=== PATIENT | male | born 1990 ===

== ENCOUNTER 2021-04-08 16:06 | Outpatient (CLI) | payer OTHER ==
--- NOTE | 2021-04-08 16:58 | SLEEP CARE CONSULTATION ---
Information from patient questionnaire entered by Levi Ogden MA. I have reviewed and concur with the information entered by Levi Ogden MA. This document represents the service I personally performed and the decisions made by , Carlie Sterling ARNP. History of Present Illness Service Date and Time: 04/08/2021 1606 Reason for Visit: New patient Accompanied by: Spouse Chief Complaint: reports: Unrefreshed sleep, Snoring, Excessive daytime sleepiness, Observed pauses in breathing, Fatigue, Other Date of Onset: 9 YEARS Usual bedtime: WEEK 2199 WEEKEND 1200 Time it takes to fall asleep: 15 minutes Snores at night: Yes Observed to quit breathing while asleep: Yes Sleeps alone due to snoring: No Number of times waking at night: 1 Reasons for waking at night: reports: Choking, Gasping for air, Other ( TELLS ME TO ROLL OVER) Toss, Turn, or Twitch while sleeping: Yes Recalls having dreams: No Usually gets out of bed at: 6627-1508 WEEK WEEKENDS 1100 AM Feels refreshed in the morning: No Morning headache: Yes (once a week, last all day with meds) Sleepy or fatigued during the day: Yes Ever fallen asleep while driving: No Takes day naps: Yes (every other day, 2 hours long) Dreams during day naps: No Prior sleep studies: No Additional HPI information: I had the pleasure of seeing ELY CRAWFORD today regarding the possibility of him having a sleep disorder. His current complaints are excessive daytime sleepiness, fatigue, observed pauses in breathing, snoring and unrefreshed sleep. He states he does not feel rested in the morning and is tired during the day. He is accompanied by his who tells me that he will sit up gasping/choking after he has fallen asleep then go back to sleep and not remember the incident. He only wakes up at night when his wakes him to get him to turn over or if he has stopped breathing. He states he never remembers his dreams. He does take naps every other day for about 1-2 hours. He has a hard time remembering things his and him talk about, especially if it is near bedtime. He has hypertension that is treated. 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 Patient is Unknown and lives in . Have you smoked in the past 12 months: No (chews tobacco) Alcohol use: Yes Alcohol amount and frequency: 1 X MONTHLY Caffeine use: Yes Caffeine amount and frequency: 2 X DAILY Family History Family history of sleep disordered breathing: No (adopted) Allergies and Home Medications Known drug allergies: No Drug allergies reviewed: Yes Home medication list reviewed: Yes Allergy and home medication list: AMLODIPINE 10 MG HYDROCHLOROTHIAZIDE 12.5 MG - 100 MG Review of Systems Weight gain over past 5 years: 40 Cardiovascular: reports: high blood pressure Neurological: reports: headaches, head trauma (concussion) Psychiatric: reports: anxiety, depression Ear/Nose/Throat: reports: wisdom teeth removed. denies: injury to nose, tonsillectomy Musculoskeletal: reports: muscle pain or cramping Immunologic: reports: allergies to food or environment (lavender) Physical Exam Vital signs obtained and entered by: SARAH WRAY Blood Pressure: 123/76 (PULSE 86, RIGHT, RESP 16) Cuff size: regular Heart Rate: 92 O2 Saturation: 98 (N95) Height: 5 ft 10 in Weight: 244 lb (UNIFORM AND CLOTHES) Body Mass Index: 34.9 BMI Classification: Obese Neck circumference: 18.5 (inches) Mouth and throat: narrow oropharynx Soft palate: long Hard palate: normal Uvula: normal, long Uvula visualization: 50% Mallampati Class II Tongue: enlarged in size with teeth harley on lateral edges Tonsils: 1+ Neck: normal w/o lymphadenopathy or thyromegaly Heart: regular rate and rhythm Lungs: clear bilaterally Impression and Plan 1. Suspected Obstructive Sleep Apnea-Hypopnea Syndrome, as suggested by a history of loud and irregular snoring, observed cessation of breath while asleep, gasping or choking in sleep, morning headache, unrefreshed sleep, cognitive impairment, and excessive daytime sleepiness. Narrow oropharynx and obesity are common predisposing factors for obstructive sleep apnea-hypopnea syndrome. I recommend proceeding to polysomnography to confirm the diagnosis and to assess severity. If the patient has significant sleep disordered breathing, a manual CPAP titration study will also be performed to find the optimal treatment pressure. I informed the patient of what the sleep studies involve and after some discussion, obtained agreement to proceed. The pathophysiology of obstructive sleep apnea-hypopnea syndrome was discussed with the patient and health risks of cardiovascular and cerebrovascular disease if not treated. Risks of drowsy driving discussed in detail and patient advised to avoid long distance driving and to seedling puller at the first sign of drowsiness. Patient agreed to plan. * Schedule polysomnography +- manual CPAP titration study and return in 1-2 weeks after the study to discuss result and initiate therapy. * Avoid long distance driving or driving when feeling sleepy. * Avoid alcohol, sedative and muscle relaxant around bedtime. * Attempt to lose weight. * Review instructions provided by trained office staff on how to prepare for the sleep study. * Return for follow-up after sleep study completed. Counseling Topics: Weight loss health impact Visit Type: In Office Other Participants: Spouse/Significant Other Time Spent with Patient (minutes): 31 Provider Statement: I spent 100% of the Face to Face Visit with the patient with greater than 50% spent counseling the patient and coordination of care.
[2021-04-08 16:59] VITALS: BP 123/76
== END 2021-04-08 16:07 | disposition home or self-care (01) ==
LOC: SC 16:06
PROVIDERS: ATTEND Nurse Practitioner Family
DX: R06.83 Snoring (principal); R06.81 Apnea, not elsewhere classified; R51.9 Headache, unspecified; R41.89 Other symptoms and signs involving cognitive functions and awareness; G47.8 Other sleep disorders; G47.10 Hypersomnia, unspecified; E66.9 Obesity, unspecified; Z68.34 Body mass index [BMI] 34.0-34.9, adult
CPT/HCPCS: 99203; 99212

== ENCOUNTER 2021-04-19 14:51 | Outpatient (CLI) | payer OTHER | END 2021-04-19 14:52 | disposition home or self-care (01) | LOC: SC 14:51 | PROVIDERS: ATTEND Nurse Practitioner Family | DX: G47.33 Obstructive sleep apnea (adult) (pediatric) (principal); R09.02 Hypoxemia; R00.0 Tachycardia, unspecified | CPT/HCPCS: 95806 ==

== ENCOUNTER 2021-05-06 16:26 | Outpatient (CLI) | payer OTHER ==
[2021-05-06 16:49] VITALS: BP 125/79
--- NOTE | 2021-05-06 16:49 | SLEEP CARE CONSULTATION ---
Information from patient questionnaire entered by Levi Ogden MA. I have reviewed and concur with the information entered by Levi Ogden MA. This document represents the service I personally performed and the decisions made by , Carlie Sterling ARNP. History of Present Illness Service Date and Time: 05/06/2021 1626 Initial [place] Sleepiness Scale score: 17 (2021) Current [place] Sleepiness Scale score: 12 (04/27) Additional HPI information: ELY CRAWFORD returns for follow up and results of the recently performed home sleep study. I explained the pathophysiology behind obstructive sleep apnea. We then spent quite a bit of time discussing different treatment options. For mild obstructive sleep apnea, surgery and oral appliance are alternatives to nasal CPAP therapy but in moderate or severe cases, nasal CPAP is the most effective and reliable treatment. Because apnea is primarily in supine position, then positional management therapy could be effective. Methods discussed such as positioning with pillows to prevent supine sleep. I reviewed the impact of weight changes on sleep apnea and strongly recommended losing weight. After some discussion, the patient opted to go with the nasal CPAP therapy. Nasal autoCPAP set at 4-15 cmH20 will be ordered with rationale explained. A manual titration study will be ordered if unable to find optimal pressure with office adjustments. I explained how CPAP machine works and what to expect when using the machine. Using CPAP every night in order to get used to it was emphasized. Patient advised to put CPAP mask on before getting into bed so as not to fall asleep wi thout CPAP. To assist acclimation to CPAP use, it could also be used for a short time during day while reading or watching TV. The patient was instructed to call the CPAP supplier to discuss any mechanical problem that may occur. If the mask given is uncomfortable or is difficult to keep on through the night even with adjustment, contact the CPAP supplier as many will replace with another mask style if notified before 30 days. If snoring or perceives is not getting enough air or too much air from the machine, notify this office. [facility] patient education PAP tips reviewed and given to patient. Patient does not drink alcohol. Patient was cautioned about risks of drowsy driving until sleepiness symptoms resolve. Sleep Study - Results Type of Sleep Study: Home sleep study (F/U HOME STUDY, 04/19/21 [facility] Prior sleep studies: No Polysomnography/Home Sleep Study results: Physician Impression: The quality of the study is good. The length of the study is adequate (> 240 minutes). Please also see the tabulated and graphic data. 1. Obstructive Sleep Apnea-Hypopnea (ICD-10 G47.33), mild, with an AHI of 6.2/hr and taisha SaO2 of 89%. During the study, the patient had 18 apneas (18 obstructive, 0 central, 0 mixed) and 16 hypopneas. The longest episode lasted 111.5 seconds. The respiratory events occurred almost exclusively during supine sleep (supine AHI was 23.9 and non-supine, 2.45). 2. Hypoxemia (ICD-10 R09.02), minimal, with the lowest oxygen saturation of 89 % and 0.1 minutes with SaO2 under 90%. Baseline oxygen saturation was normal (Average oxygen saturation was 95%). 3. Tachycardia, with maximum recorded heart rate of 124 beats per minute. Allergies and Home Medications Home medication list reviewed: Yes (no changes) Review of Systems Review of systems same as previous: Yes (no changes) Physical Exam Vital signs obtained and entered by: Tyrell OGDEN CMA AADEJON Blood Pressure: 125/79 (left, pulse 90, resp 20,) Cuff size: wrist (91) Heart Rate: 91 O2 Saturation: 97 (paper) Height: 5 ft 10 in Weight: 240 lb Body Mass Index: 34.4 BMI Classification: Obese Impression and Plan 1. Obstructive Sleep Apnea-Hypopnea Syndrome, mild, with lowest oxygen saturation of 89%. Obviously this is the cause of the patients symptoms of unrefreshed sleep, and excessive daytime sleepiness. Positive pressure therapy could benefit hypertension. As mentioned above, the patient will be started on nasal autoCPAP therapy with pressure set at 4-15 cmH2O. Compliance guidelines also reviewed. A copy of compliance guidelines will be given for reference at check out. Because the apnea is more severe supine, I instructed to avoid sleeping supine using pillow positioning until able to start CPAP use. 2. Hypoxemia, minimal, with the lowest oxygen saturation of 89 % and 0.1 minutes with SaO2 under 90%. His baseline oxygen saturation was normal with an average oxygen saturation of 95%. 3. Tachycardia, with maximum recorded heart rate of 124 beats per minute during his HST. This may be secondary to sleep apnea but may follow up with PCP for further evaluation as needed. * Nasal auto CPAP therapy, pressure at 4-15 cm H2O. * Attempt to lose weight. * Avoid alcohol consumption near bedtime. * Avoid supine sleep until using CPAP. * The patient is again cautioned about driving until sleepiness completely resolves. * Return one month after CPAP obtained. I will assess response to therapy and compliance at that time. Counseling Topics: Weight loss health impact Visit Type: In Office Time Spent with Patient (minutes): 15 Provider Statement: I spent 100% of the Face to Face Visit with the patient with greater than 50% spent counseling the patient and coordination of care.
== END 2021-05-06 16:27 | disposition home or self-care (01) ==
LOC: SC 16:26
PROVIDERS: ATTEND Nurse Practitioner Family
DX: G47.33 Obstructive sleep apnea (adult) (pediatric) (principal); R09.02 Hypoxemia; R00.0 Tachycardia, unspecified; E66.9 Obesity, unspecified; Z68.34 Body mass index [BMI] 34.0-34.9, adult
CPT/HCPCS: 99212